=== PATIENT | male | born 1965 | race Two or more races ===

== ENCOUNTER 2023-04-29 10:19 | Emergency (ER) | payer MEDICAID, OTHER ==
[~2023-04-29] VITALS: Ht 165.1 cm; Wt 77.1 kg
[~2023-04-29 10:19] MED LIST: OMEP20TA20 PO
[2023-04-29 11:04] VITALS: BP 161/88; TEMP 98.4; O2SAT 97
== END 2023-04-29 11:09 | disposition home or self-care (01) ==
LOC: ER 10:21
DX: S62.292A Other fracture of first metacarpal bone, left hand, initial encounter for closed fracture (principal); K74.60 Unspecified cirrhosis of liver; F17.200 Nicotine dependence, unspecified, uncomplicated; Z98.890 Other specified postprocedural states; Z79.899 Other long term (current) drug therapy; W01.0XXA Fall on same level from slipping, tripping and stumbling without subsequent striking against object, initial encounter; Y93.89 Activity, other specified; Y92.89 Other specified places as the place of occurrence of the external cause; Y99.8 Other external cause status
CPT/HCPCS: 73110; 73130-TC